=== PATIENT | male | born 1985 | race Caucasian/White ===

== ENCOUNTER 2018-02-10 12:51 | Emergency (ER) | payer MEDICAID ==
[~2018-02-10] VITALS: Ht 185.4 cm; Wt 99.8 kg
[2018-02-10] MEDS ORDERED: SODIUM CHLORIDE 0.9% 1,000 ML IV ONE (13:33)
[2018-02-10] MEDS ORDERED: LORazepam 2MG/ML-1ML VIAL IV ONE (13:45)
[2018-02-10 13:46] VITALS: BP 168/88
[2018-02-10 14:07] LABS: Basophils # (auto) 0.1 uL; Basophils % (auto) 0.6 % (0.0-2.0); Eosinophils # (auto) 0 uL; Eosinophils % (auto) 0.6 % (0.0-7.0); Hematocrit 49.7 % (41.0-53.0); Hemoglobin 16.9 g/dL (13.5-17.5); Lymphocytes # (auto) 1.7 uL; Lymphocytes % (auto) 20.5 % (10.0-50.0); Mean Corpuscular Hemoglobin 29.4 pg (28.0-32.0); Mean Corpuscular Hgb Conc. 33.9 g/dL (32.0-36.0); Mean Corpuscular Volume 86.6 fL (80.0-100.0); Monocytes # (auto) 0.7 uL; Monocytes % (auto) 9.1 % (0.0-12.0); Neutrophils # (auto) 5.7 uL; Neutrophils % (auto) 69.2 % (37.0-80.0); Nucleated Red Blood Cells % 0.3 %; Platelet Count (auto) 349 10^3/uL (140-450); Red Blood Cells 5.74 10^6/uL (4.5-5.90); Red Cell Distribution Width 14.4 % (11.8-14.3); White Blood Cell 8.2 10^3/uL (4.4-10.8)
[2018-02-10 14:22] LABS: Calcium 8.8 mg/dL (8.5-10.1); Potassium 3.6 mmol/L (3.5-5.1)
[2018-02-10 14:24] LABS: BUN/Creatinine Ratio 10.6; Bilirubin, Total 1.2 mg/dL (0.2-1.0); Total Protein 8.1 g/dL (6.4-8.2)
== END 2018-02-10 14:47 | disposition home or self-care (01) ==
LOC: ER 12:51 → EDAGE 12:51 → ER 14:47
DX: F41.9 Anxiety disorder, unspecified (principal); F10.230 Alcohol dependence with withdrawal, uncomplicated; F17.210 Nicotine dependence, cigarettes, uncomplicated
CPT/HCPCS: 36415; 80053; 80320; 85025; 94761; 96361; 96374; 99284; J2060; J7030

== ENCOUNTER 2019-12-13 11:12 | Emergency (ER) | payer MEDICAID ==
[~2019-12-13] VITALS: Ht 185.4 cm; Wt 99.8 kg
[2019-12-13 14:00] VITALS: BP 124/75
[2019-12-13] MEDS ORDERED: ACETAMINOPHEN/CODEINE#3 (300/30mg) TAB PO ONE (14:00)
== END 2019-12-13 15:21 | disposition home or self-care (01) ==
LOC: ER 11:12
DX: S02.2XXA Fracture of nasal bones, initial encounter for closed fracture (principal); F17.210 Nicotine dependence, cigarettes, uncomplicated; X58.XXXA Exposure to other specified factors, initial encounter; Y93.23 Activity, snow (alpine) (downhill) skiing, snowboarding, sledding, tobogganing and snow tubing; Y92.89 Other specified places as the place of occurrence of the external cause; Y99.8 Other external cause status
CPT/HCPCS: 70160; 70450; 70486

== ENCOUNTER 2020-07-04 12:35 | Inpatient (IN) | payer OTHER, MEDICAID ==
[~2020-07-04] VITALS: Ht 185.4 cm; Wt 100.2 kg
[2020-07-04] MEDS ORDERED: SODIUM CHLORIDE 0.9% 500 ML IVB ONE (13:27)
[2020-07-04] MEDS ORDERED: MORPHINE SULFATE 4 MG/ML SYR/VIAL IV ONE (13:30)
[2020-07-04] MEDS ORDERED: ONDANSETRON HCL 4 MG/2 ML VIAL IV ONE (13:30)
[2020-07-04 13:53] LABS: Basophils # (auto) 0 10 ^3/uL (0-0.2); Basophils % (auto) 0.2 % (0.0-2.0); Eosinophils # (auto) 0.2 10 ^3/uL (0-0.8); Eosinophils % (auto) 1.3 % (0.0-7.0); Hematocrit 48.3 % (41.0-53.0); Hemoglobin 16.1 g/dL (13.5-17.5); Lymphocytes # (auto) 1.2 10 ^3/uL (0.4-5.4); Lymphocytes % (auto) 9.4 % (10.0-50.0); Mean Corpuscular Hgb Conc. 33.3 g/dL (32.0-36.0); Mean Corpuscular Volume 87.1 fL (80.0-100.0); Monocytes % (auto) 7.8 % (0.0-12.0); Neutrophils # (auto) 10.8 10 ^3/uL (1.6-8.6); Neutrophils % (auto) 81.3 % (37.0-80.0); Nucleated Red Blood Cells % 0.1 %; Platelet Count (auto) 279 10^3/uL (140-450); Red Blood Cells 5.55 10^6/uL (4.5-5.90); White Blood Cell 13.2 10^3/uL (4.4-10.8)
[2020-07-04 14:17] LABS: Albumin 3.8 g/dL (3.4-5.0); BUN/Creatinine Ratio 9.4; Potassium 3.8 mmol/L (3.5-5.1)
[2020-07-04 14:20] LABS: Bilirubin, Total 2.2 mg/dL (0.2-1.0); Total Protein 7.8 g/dL (6.4-8.2)
[2020-07-04] MEDS ORDERED: PANTOPRAZOLE 40 MG/10 ML VIAL INJ IV ONE ×2 (14:30→23:15)
[2020-07-04] MEDS ORDERED: SODIUM CHLORIDE 0.9% 1,000 ML IV SCH ×2 (16:52→23:15)
[2020-07-04] MEDS ORDERED: DOCUSATE SOD 100 MG CAP PO PRN (17:00)
[2020-07-04] MEDS ORDERED: HYDROcodone-ACET 5/325MG TAB PO PRN (17:00)
[2020-07-04] MEDS ORDERED: ONDANSETRON HCL 4 MG/2 ML VIAL IV PRN (17:00)
[2020-07-04] MEDS ORDERED: NITROGLYCERIN 0.4 MG SL TAB SL PRN (17:00)
[2020-07-04] MEDS ORDERED: ALUM & MAG HYDROX-SIMETH LIQ(MAALOX) 30 ML PO PRN (17:00)
[2020-07-04] MEDS ORDERED: LORazepam 0.5 MG TAB PO PRN (17:00)
[2020-07-04] MEDS ORDERED: MORPHINE SULF INJ 2 MG/ML SYRINGE 1ML IV PRN ×2 (17:00)
[2020-07-04] MEDS ORDERED: ACETAMINOPHEN 325 MG TAB PO PRN (17:00)
[2020-07-04] MEDS ORDERED: metroNIDAZOLE 500MG/100ML 100 ML IV ONE (17:45)
[2020-07-04] MEDS ORDERED: cefTRIAXone 1GM/50ML D5W 50 ML IV ONE (17:45)
[2020-07-04 17:58] LABS: Cholesterol 143 mg/dL (< 200); HDL Cholesterol 53 mg/dL (40-59); LDL Cholesterol 63 mg/dL (< 100); Triglycerides 287 mg/dL (< 150)
[2020-07-04] MEDS: chlordiazePOXIDE HCL 25 MG CAP PO SCH (18:43)
[2020-07-04] MEDS ORDERED: metroNIDAZOLE 500MG/100ML 100 ML IV SCH (22:00)
--- NOTE | 2020-07-04 22:40 | NUR ---
Telemetry admit from ER MOOKIE GONZÁLES admitted to Telemetry unit. Patient oriented to LORETTA OLIVEIRA, primary RN, unit, room, bed, and unit policies regarding patient care and visiting hours. Patient now on continuous telemetry monitoring, tele box #[id number] and telemetry reading on arrival to unit is ST. Patient laying in bed with the rails up x2, bed is locked in the lowest position. Call light explained and placed within reach. Patient weighed by bedscale and encouraged to call if they need something. All questions and concerns addressed, patient verbalized understanding.
[2020-07-04 23:00] VITALS: BP 157/103
[2020-07-04] MEDS ORDERED: CYANOCOBALAMIN (B-12) 1000 MCG/1 ML VIAL IM ONE (23:15)
[2020-07-04] MEDS ORDERED: FOLIC ACID 1 MG TAB PO ONE (23:15)
[2020-07-04] MEDS ORDERED: THIAMINE 100mg/ml INJ (200mg/2ml VIAL) IV ONE (23:15)
[2020-07-04] MEDS ORDERED: THIAMINE HCL 100 MG TAB PO ONE (23:15)
[2020-07-04] MEDS ORDERED: MULTIPLE VITAMIN TAB PO ONE (23:15)
[2020-07-04] MEDS ORDERED: hydrALAZINE HCL 20 MG/ML VL IV PRN (23:30)
--- NOTE | 2020-07-05 01:00 | NUR ---
PATIENT VALUABLES ENVELOPE NUMBER [id number] PLACED IN HOUSE SUPERVISORS OFFICE IN A SECURE AREA NEXT TO THE [employer]EE IT IS SEALED AND STATES ON THE ENVELOPE THAT THERE IS A WALLET X1 WITH $203.00 INSIDE
[2020-07-05] MEDS ORDERED: LORA1TAB23 PO (01:27)
[2020-07-05] MEDS: chlordiazePOXIDE HCL 25 MG CAP PO SCH (02:06)
[2020-07-05 05:22] VITALS: BP 151/96
--- NOTE | 2020-07-05 06:12 | NUR ---
Pt discharged AMA Patient stated he wished to leave the hospital and that he wanted to go to [place] instead. Informed patient of the risks of doing so. Pt verbalized understanding. Pt self discontinued tele and Iv access. Patient signed AMA paper and walked himself out of the hospital .
[2020-07-05] MEDS ORDERED: cefTRIAXone 1GM/50ML D5W 50 ML IV SCH (09:00)
[2020-07-05] MEDS ORDERED: FOLIC ACID 1 MG TAB PO SCH (10:00)
[2020-07-05] MEDS ORDERED: ENOXAPARIN SOD 40 MG/0.4 ML SYRINGE SC SCH (10:00)
[2020-07-05] MEDS ORDERED: THIAMINE HCL 100 MG TAB PO SCH (10:00)
[2020-07-05] MEDS ORDERED: chlordiazePOXIDE HCL 25 MG CAP PO SCH (10:00)
[2020-07-05] MEDS ORDERED: MULTIPLE VITAMIN TAB PO SCH (10:00)
[2020-07-05] MEDS ORDERED: METOPROLOL TARTRATE 25 MG TAB PO SCH (10:00)
[2020-07-05] MEDS ORDERED: PANTOPRAZOLE 40 MG/10 ML VIAL INJ IV SCH (10:00)
[2020-07-06] MEDS ORDERED: chlordiazePOXIDE HCL 25 MG CAP PO SCH (10:00)
[2020-07-07] MEDS ORDERED: chlordiazePOXIDE HCL 25 MG CAP PO SCH (07:00)
== END 2020-07-05 06:12 | disposition left against medical advice (07) | DRG 439 ==
LOC: ER 12:35 → TELE 12:36 → TELE-WESTW 22:40
PROVIDERS: ADMIT Internal Medicine; ATTEND Hospitalist
DX: K85.20 Alcohol induced acute pancreatitis without necrosis or infection (principal); F10.239 Alcohol dependence with withdrawal, unspecified; K50.00 Crohn's disease of small intestine without complications; E78.5 Hyperlipidemia, unspecified; E66.9 Obesity, unspecified; K29.20 Alcoholic gastritis without bleeding; Z53.29 Procedure and treatment not carried out because of patient's decision for other reasons; K29.80 Duodenitis without bleeding; K70.10 Alcoholic hepatitis without ascites; Z82.49 Family history of ischemic heart disease and other diseases of the circulatory system; Z87.891 Personal history of nicotine dependence; Z68.29 Body mass index [BMI] 29.0-29.9, adult
CPT/HCPCS: 36415; 74176; 80053; 80061; 82150; 83036; 83690; 84484; 85025; 87040; 96365; 96367; 96368; 96375; C9113; G0378; J0696; J2405; J3490